=== PATIENT | female | born 1975 | race Two or more races ===

== ENCOUNTER 2017-10-21 09:33 | Outpatient (CLI) | payer OTHER | END 2017-10-21 09:40 | disposition home or self-care (01) | LOC: SONOGRAMA 09:33 | DX: E04.1 Nontoxic single thyroid nodule (principal) ==

== ENCOUNTER 2017-11-07 08:42 | Outpatient (CLI) | payer OTHER | END 2017-11-07 08:56 | disposition home or self-care (01) | LOC: RAD 08:42 | DX: K80.20 Calculus of gallbladder without cholecystitis without obstruction (principal); K40.90 Unilateral inguinal hernia, without obstruction or gangrene, not specified as recurrent ==

== ENCOUNTER 2021-11-21 08:31 | Emergency (ER) | payer OTHER ==
[~2021-11-21] VITALS: Ht 170.2 cm; Wt 86.2 kg
[2021-11-21] MEDS ORDERED: KETO10TA2 PO (12:43)
[2021-11-21] MEDS ORDERED: NORFLEX100MG PO (12:43)
== END 2021-11-21 13:01 | disposition home or self-care (01) ==
LOC: ER 08:31
DX: M54.9 Dorsalgia, unspecified (principal)

== ENCOUNTER 2024-07-07 07:08 | Outpatient (CLI) | payer OTHER ==
[~2024-07-07 07:08] MED LIST: KETO10TA2 PO; NORFLEX100MG PO
== END 2024-07-07 07:20 | disposition home or self-care (01) ==
LOC: SONOGRAMA 07:08
PROVIDERS: ATTEND Internal Medicine Gastroenterology
DX: R74.01 Elevation of levels of liver transaminase levels (principal); E03.9 Hypothyroidism, unspecified

== ENCOUNTER 2025-02-25 07:09 | Outpatient (CLI) | payer OTHER | END 2025-02-25 07:10 | disposition home or self-care (01) | LOC: SONOGRAMA 07:09 | DX: E03.8 Other specified hypothyroidism (principal); E66.9 Obesity, unspecified; E04.2 Nontoxic multinodular goiter; E03.4 Atrophy of thyroid (acquired); E03.5 Myxedema coma; E03.9 Hypothyroidism, unspecified ==

== ENCOUNTER 2025-06-06 07:25 | Outpatient (CLI) | payer OTHER | END 2025-06-06 07:38 | disposition home or self-care (01) | LOC: MAMO-SONO 07:25 | PROVIDERS: ATTEND Obstetrics & Gynecology | DX: N63.0 Unspecified lump in unspecified breast (principal); N64.59 Other signs and symptoms in breast; N64.9 Disorder of breast, unspecified; Z12.31 Encounter for screening mammogram for malignant neoplasm of breast; N94.0 Mittelschmerz; R10.20 Pelvic and perineal pain unspecified side; N94.89 Other specified conditions associated with female genital organs and menstrual cycle ==